=== PATIENT | female | born 1990 | race Caucasian/White ===

== ENCOUNTER 2017-01-20 15:43 | Emergency (ER) | payer BC ==
[~2017-01-20 15:43] MED LIST: AMBIEN10 MG PO; ATIVAN PO; AUGMENTIN PO; BIRTH CONTROL PILL PO; CIPRO PO; CITRATE OF MAG296 M1 PO; CLEOCIN HCL300 M1 PO; CYMBALTA PO; DARVOCET-N 1001 TAB PO; DULOXETINE HCL60 MG PO; FIORICET PO; FLAGYL PO; FLEET ENEMA133 M1 PR; FLEXERIL10 MG; FLEXERIL10 MG PO; KEFLEX PO; KEPPRA PO; KEPPRA500 M2 PO; KEPPRA500 MG PO; KEPPRA750 M1 PO; LIPITOR20 MG PO; LORCET 10/1 TAB 10/6 DOB; LORTAB 5/500 TA1 TA1 PO; LORTAB 7.5-5001 TAB PO; MULTIVITAMIN1 UDCAP PO; NAPROXEN PO; NEURONTIN300 MG PO; NUVARING V1 VAG.RING VG; OMNICEF PO; ORTHO TRI-7 DAYS X PO; ORUDIS75 M1; ORUDIS75 M1 PO; PERCOCET5/325 PO; PHENERGAN25 MG PO; PRENATAL1 TA1 PO; SOMA PO; TOPAMAX PO; TRAZODONE HCL150 MG PO; TRAZODONE PO; TYLOX1 CAP 5/50 PO; ULTRAM PO; VICODIN 5/500 T1 TAB PO; VICODIN PO; XANAX0.5 MG PO; XANAX1 MG PO; ZOFRAN ODT4 MG PO
[2017-01-20 16:11] LABS: BASOPHIL# 0.1 X10e3 (0-0.3); BASOPHIL% 1.2 % (0-2.5); DIFF IND NO; EOSINOPHIL# 0.1 X10e3 (0-0.7); EOSINOPHIL% 1.7 % (0.0-7.0); HEMATOCRIT 41.9 % (35.0-45.0); HEMOGLOBIN 13.5 gm/dL (12.0-16.0); LYMPHOCYTE# 1.6 X10e3 (1.0-3.5); LYMPHOCYTE% 20.7 % (17.0-45.0); MEAN CELL VOLUME 94.9 FL (83-96); MEAN CORPUSCULAR HEMOGLOBIN 30.6 PG (28-34); MEAN CORPUSCULAR HGB CONC 32.3 g/dL (30-36); MEAN PLATELET VOLUME 7.7 FL (6.5-11.5); MONOCYTE# 0.4 X10e3 (0-1.0); MONOCYTE% 5.7 % (3.0-12.0); NEUTROPHIL# 5.4 X10e3 (1.5-7.1); NEUTROPHIL% 70.7 % (40-75); PLATELET COUNT 521 X10e3 (140-420); RED BLOOD COUNT 4.41 X10e (3.90-5.30); RED CELL DISTRIBUTION WIDTH 16.7 % (11.0-15.5); WHITE BLOOD COUNT 7.7 X10e3 (4.0-10.5)
[2017-01-20 16:28] LABS: URINE APPEARANCE CLEAR; URINE BILIRUBIN NEG (NEG); URINE BLOOD NEG (NEG); URINE COLOR YELLOW; URINE GLUCOSE NEG (NORM); URINE KETONE NEG (NEG); URINE LEUKOCYTE ESTERASE NEG (NEG); URINE NITRATE NEG (NEG); URINE PROTEIN NEG (NEG); URINE SOURCE CLEAN CATCH; URINE SPECIFIC GRAVITY 1.015 (1.003-1.035); URINE UROBILINOGEN 0.2 MG/DL (NORM)
[2017-01-20 16:29] LABS: ALBUMIN SERUM 3.8 g/dL (3.5-5.0); ALKALINE PHOSPHATASE 70 U/L (32-92); ALT (SGPT) 27 U/L (10-40); AMYLASE 20 U/L (0-46); AST (SGOT) 24 U/L (10-42); BILIRUBIN,TOTAL 0.4 mg/dL (0.2-2.0); BLOOD UREA NITROGEN 8 mg/dL (9-23); CALCIUM SERUM 8.5 mg/dL (8.4-10.2); CARBON DIOXIDE 23 mmol/L (22-31); CHLORIDE 106 mmol/L (100-111); CREATININE SERUM 0.8 mg/dL (0.6-1.4); GLOM FILT RATE Estimated ABOVE60 mL/min (>60); GLUCOSE FASTING 91 mg/dL (70-110); LIPASE 30 U/L (22-51); PROTEIN TOTAL SERUM 7.1 g/dL (6.0-8.3); SODIUM 136 mmol/L (135-145)
[2017-01-20 16:29] LABS: MICRO INDICATED? NO
[2017-01-20 16:33] LABS: BILIRUBIN, DIRECT <0.1 mg/dL (0.0-0.2); BILIRUBIN,INDIRECT 0.3 mg/dL (0.0-0.9)
== END 2017-01-20 17:39 | disposition home or self-care (01) ==
LOC: SED 15:43
PROVIDERS: Emergency Medicine
DX: K29.00 Acute gastritis without bleeding (principal); R53.1 Weakness; F31.9 Bipolar disorder, unspecified; Z79.899 Other long term (current) drug therapy; Z88.6 Allergy status to analgesic agent; Z91.018 Allergy to other foods; Z87.891 Personal history of nicotine dependence
CPT/HCPCS: 36415; 80048; 80076; 81003; 82150; 82947; 83690; 84703; 85025; 86308; 96374; 96375; 99284; C9113; J2270; J2405

== ENCOUNTER 2017-06-06 10:25 | Emergency (ER) | payer BC | END 2017-06-06 12:17 | disposition home or self-care (01) | LOC: SED 10:25 | DX: G44.209 Tension-type headache, unspecified, not intractable (principal); D64.9 Anemia, unspecified; F41.9 Anxiety disorder, unspecified; Z90.49 Acquired absence of other specified parts of digestive tract; Z88.6 Allergy status to analgesic agent; Z79.899 Other long term (current) drug therapy | CPT/HCPCS: 96361; 96372; 96374; 99284; J0780; J1200 ==

== ENCOUNTER 2017-06-06 12:59 | Emergency (ER) | payer BC ==
[~2017-06-06] VITALS: Ht 172.7 cm; Wt 122.5 kg
--- NOTE | ~2017-06-06 | CT71 ---
[facility] A Service of [facility] & [facility] RADIOLOGY TEXT RESULTS PATIENT: CATHRNY HSU LOCATION: CFTX : [birth year] UNIT #: [id number] AGE: [address]: Liberty Sen APRN SEX: F ORDER DR: [id number] [facility] [address] [place], [place] [address] [id number] MR#: [id number] Acc #: [id number] NAME: CATHRYN HSU : 1990 SEX: F STUDY DATE/TIME: 06/06/2017 15:08 UNIT: [facility] ROOM: STUDY DESCRIPTION: CT Head Wo Contrast Attending Physician: Liberty Sen A.P.R.N. Ordering Physician: Chapito Dorman M.D. Primary Care Physician: Jia Angel M.D. MEDICAL IMAGING REPORT This report is preliminary unless electronic signature is present EXAM CT head, 06/06/2017 HISTORY Migraine, blurry vision, dizzy for [address] exam was performed with one or more of the following radiation dose reduction techniques: automatic exposure control, adjustment of mA and/or kV according to patient size, and iterative reconstruction. FINDINGS CT head performed skull base through vertex without intravenous contrast. Comparison 12/23/2014. Study degraded by streak artifact from ear jewelry. No hemorrhage. No evidence of acute cortical ischemia. Midline structures nondisplaced. Basal ganglia intact. Ventricles, cisterns, sulci normal in size and contour. No intra or extraaxial mass effect or abnormal intracranial fluid collection. The paranasal sinuses show minimal mucosal thickening ethmoid air cells. There is no indication of acute sinusitis. There is no fracture. IMPRESSION 1. Brain appears normal. No change from 12/23/2014. 2. Streak artifact from ear jewelry. 3. Minimal mucosal thickening ethmoid air cells. There is no indication of acute sinusitis. Dictated by... Kingsley Mccoy M.D. THIS IS AN ELECTRONICALLY VERIFIED REPORT Kingsley Mccoy M.D. at 06/09/2017 1:22 PM [facility] A Service of [facility] & [facility] RADIOLOGY TEXT RESULTS PATIENT: CATHRYN HSU LOCATION: [facility] : [birth year] UNIT #: [id number] AGE: [address]: Liberty Sen APRN SEX: F ORDER DR: RANULFO/debbi TD: 06/07/2017 04:28 JOB #: [id number] MEDICAL IMAGING REPORT Page 1 of 1 COPY
== END 2017-06-06 16:45 | disposition home or self-care (01) ==
LOC: CED 12:59 → CFTX 12:59
DX: R51 Headache (principal); Z88.8 Allergy status to other drugs, medicaments and biological substances
CPT/HCPCS: 70450; 84703; 96361; 96374; 99284; J1885